=== PATIENT | female | born 1940 | race Caucasian/White ===

== ENCOUNTER 2016-10-19 14:13 | Emergency (ER) | payer MEDICARE, OTHER ==
[~2016-10-19 14:13] MED LIST: CEPH-263 PO; CEPH-264 PO; FLUC100T7 PO; LEVO500T38 PO; NYST15OI2 TP; OXYC-250 PO; OXYC15TA60 PO; [UNRECOGNIZED DRUG - REMARK]
[2016-10-19 15:12] LABS: BASO % 1 % (0-3); EOS # 0.4 x10^3/uL (0.0-0.7); EOS % 6 % (0-3); HEMOGLOBIN 11.8 g/dL (12.0-15.5); LYMPH # 0.7 x10^3/uL (1.0-4.8); LYMPH % 11 % (24-48); MEAN CORPUSCULAR HEMOGLOBIN 32 pg (25-35); MEAN CORPUSCULAR HGB CONC 33 g/dL (31-37); MEAN CORPUSCULAR VOLUME 97 fL (79-100); MONO # 0.7 x10^3/uL (0.0-1.1); MONO % 12 % (0-9); NEUT # 4.3 x10^3uL (1.8-7.7); NEUT % 71 % (31-73); PLATELET COUNT 116 x10^3/uL (140-400); RED BLOOD COUNT 3.69 x10^6/uL (3.50-5.40); RED CELL DISTRIBUTION WIDTH 15.6 % (11.5-14.5); WHITE BLOOD COUNT 6.1 x10^3/uL (4.0-11.0)
[2016-10-19 15:19] LABS: ALBUMIN 3.3 g/dL (3.4-5.0); ALBUMIN/GLOBULIN RATIO 0.7 (1.0-1.7); CALCIUM 7.8 mg/dL (8.5-10.1); CREATININE 7.3 mg/dL (0.6-1.0); GFR 5.4; POTASSIUM 4.7 mmol/L (3.5-5.1); TOTAL BILIRUBIN 0.5 mg/dL (0.2-1.0); TOTAL PROTEIN 7.9 g/dL (6.4-8.2)
--- NOTE | 2016-10-19 15:21 | ED.ADGEN ---
Past History Past Medical History: Arthritis, CAD, CHF, Diabetes, Hypertension, Renal Disease, Stroke, TIA, UTI Past Surgical History: Appendectomy, Cholecystectomy, Hysterectomy, Pacemaker, Other Smoking: Non-smoker Alcohol Use: None Drug Use: None Adult General Chief Complaint Chief Complaint "don't feel good, R ear pain, pain with urination HPI HPI Patient is a 76 year old female who presents with generalized not feeling well. She's had vomiting in recent days. Patient is a dialysis patient and she states she did not go two days ago and could not go today either.She reports "pain all over" but denies specific questions of pain reporting no chest pain, no abdominal pain, no increased shortness of breath. She continues to urinate and reports some pain with urination. Denies known fevers. She's most concerned about pain she has in her R ear at this time. Pt had h/o CAD, had a bare-metal stent placed by Dr. Villalta in 05/2016. When I asked the pt if she' s taking blood thinners, she answers yes but not sure what it is. When asked if she is sure she takes it everyday, she can't confirm that she takes it "every " day, because she has so many pills, she sometimes doesn't take them all. PCP: Evans Betancourt [employer] Specialist: Dr. Kelly Review of Systems Review of Systems Constitutional: Denies fever or chills [] Eyes: Denies change in visual acuity, redness, or eye pain [] HENT: Denies nasal congestion or sore throat [] Respiratory: Denies shortness of breath [] Cardiovascular: Denies chest pain GI: Denies abdominal pain, reports nausea, vomiting, denies bloody stools or diarrhea [] : per hpi Musculoskeletal: Reports multiple areas of pain Integument: Denies rash or skin lesions [] Neurologic: Denies headache, focal weakness or sensory changes [] Current Medications Current Medications Current Medications Medications (Trade) Dose Ordered Sig/Jami Start Time Stop Time Status Last Admin Dose Admin Amoxicillin (Amoxil) 500 mg 1X ONCE 10/19/16 17:15 10/19/16 17:16 DC 10/19/16 17:09 500 MG Aspirin (Laverne Aspirin) 325 mg 1X ONCE 10/19/16 16:40 10/19/16 16:41 DC 10/19/16 16:15 325 MG Allergies Allergies Allergies Coded Allergies Type Severity Reaction Last Updated Verified Sulfa (Sulfonamide Antibiotics) Allergy Intermediate Rash 01/27/16 Yes oxycodone Allergy Mild Itching 01/27/16 Yes Physical Exam Physical Exam Constitutional: Well developed, well nourished, no acute distress, non-toxic appearance, morbid obesity HENT: Normocephalic, atraumatic, bilateral external ears normal without tenderness, pt has dull retracted R TM without surruonding erythema, oropharynx moist, no oral exudates, nose normal. [] Eyes: PERRLA, EOMI, conjunctiva normal, no discharge. [] Neck: Normal range of motion, no tenderness, supple, no stridor. [] Cardiovascular:Heart rate regular with regular rhythm Lungs & Thorax: Bilateral breath sounds clear to auscultation, moderate air movement, no appreciable crackles Abdomen: Bowel sounds hypoactive, soft, no tenderness, no masses,nondistended Skin: Warm, dry, no erythema, erythema of lower extremities without increased warmth. Scab over distal anterior lateral R lower leg Extremities: No tenderness, no cyanosis, no clubbing, ROM intact, 1+ bilateral le edema. [] Neurologic: Alert and oriented X 3, normal motor function, normal sensory function, no focal deficits noted. [] Current Patient Data Vital Signs Vital Signs Date Time Temp Pulse Resp B/P Pulse Ox O2 Delivery O2 Flow Rate FiO2 10/19/16 18:23 97.7 62 17 106/39 98 Room Air Lab Results Laboratory Tests Test 10/19/16 14:45 10/19/16 16:29 10/19/16 17:40 White Blood Count 6.1x10^3/uL (4.0-11.0) Red Blood Count 3.69x10^6/uL (3.50-5.40) Hemoglobin 11.8g/dL (12.0-15.5) L Hematocrit 36.0% (36.0-47.0) Mean Corpuscular Volume 97fL (79-100) Mean Corpuscular Hemoglobin 32pg (25-35) Mean Corpuscular Hemoglobin Concent 33g/dL (31-37) Red Cell Distribution Width 15.6% (11.5-14.5) H Platelet Count 116x10^3/uL (140-400) L Neutrophils (%) (Auto) 71% (31-73) Lymphocytes (%) (Auto) 11% (24-48) L Monocytes (%) (Auto) 12% (0-9) H Eosinophils (%) (Auto) 6% (0-3) H Basophils (%) (Auto) 1% (0-3) Neutrophils # (Auto) 4.3x10^3uL (1.8-7.7) Lymphocytes # (Auto) 0.7x10^3/uL (1.0-4.8) L Monocytes # (Auto) 0.7x10^3/uL (0.0-1.1) Eosinophils # (Auto) 0.4x10^3/uL (0.0-0.7) Basophils # (Auto) 0.0x10^3/uL (0.0-0.2) Sodium Level 134mmol/L (136-145) L Potassium Level 4.7mmol/L (3.5-5.1) Chloride Level 93mmol/L (98-107) L Carbon Dioxide Level 25mmol/L (21-32) Anion Gap 16 (6-14) H Blood Urea Nitrogen 82mg/dL (7-20) H Creatinine 7.3mg/dL (0.6-1.0) H Estimated GFR (Cockcroft-Gault) 5.4 BUN/Creatinine Ratio 11 (6-20) Glucose Level 165mg/dL (70-99) H Calcium Level 7.8mg/dL (8.5-10.1) L Total Bilirubin 0.5mg/dL (0.2-1.0) Aspartate Amino Transferase (AST) 40U/L (15-37) H Alanine Aminotransferase (ALT) 41U/L (14-59) Alkaline Phosphatase 136U/L (46-116) H Troponin I Quantitative 0.027ng/mL (0-0.055) Total Protein 7.9g/dL (6.4-8.2) Albumin 3.3g/dL (3.4-5.0) L Albumin/Globulin Ratio 0.7 (1.0-1.7) L POC Troponin I 0.02ng/ml (<0.08) Urine Collection Type Unknown Urine Color Yellow Urine Clarity Cloudy Urine pH 7.0 Urine Specific [place] 1.015 Urine Protein >100 mg/dl (NEG-TRACE) Urine Glucose (UA) 100mg/dL (NEG) Urine Ketones (Stick) Negmg/dL (NEG) Urine Blood Mod (NEG) Urine Nitrite Neg (NEG) Urine Bilirubin Neg (NEG) Urine Urobilinogen Dipstick 0.2mg/dL (0.2 mg/dL) Urine Leukocyte Esterase Small (NEG) Urine RBC 3-5/HPF (0-2) Urine WBC 20-40/HPF (0-4) Urine Squamous Epithelial Cells Many/LPF Urine Bacteria Few/HPF (0-FEW) EKG EKG 93 bpm, V paced, R axis, QTC 520, no ST elevation, biphasic T wave III, V2, interpreted by me.[] Radiology/Procedures Radiology/Procedures [] Course & Med Decision Making Course & Med Decision Making Pertinent Labs and Imaging studies reviewed. (See chart for details) Pt has missed dialysis with vague symptoms of nonfocal pain with vomiting. Labs /urine ordered. EKG showed paced rhythm. Initial troponin return was 9. Aspirin given. contacted the lab and questioned the troponin as they normally call to alert to elevated troponins. They stated it wasn't elevated and we informed them that the reading in [facility] is 9.0. I contacted Dr. Chaidez, who accepted the transfer. I contacted Dr. Kelly and informed him of the elevated troponin, but that lab believes it was an error. He recommended transfer anyway , will arrange for inpatient dialysis. Lab confirmed they believe troponin in error and changed the reading in [facility]. We completed istat troponin in the ED. I contacted Mary Romeo of cardiology, who will consult on the patient. Istat troponin negative. I contacted Dr. Chaidez to explain the changes. No heparin given. UA pending at the time care was transferred. Pt was given a dose of amoxicillin for R otitis media. Final Impression Final Impression Vomiting Missed dialysis End stage renal disease R otitis media - possible Problems: Dragon Disclaimer Dragon Disclaimer This electronic medical record was generated, in whole or in part, using a voice recognition dictation system. LELO CAMPOS MD Oct 19, 2016 15:21
[2016-10-19] MEDS ORDERED: ASPIRIN 325 MG TABLET PO ONE (16:40)
[2016-10-19] MEDS ORDERED: AMOXICILLIN 500 MG CAPSULE PO ONE (17:15)
[2016-10-19 17:57] LABS: BILIRUBIN,URINE NEG (NEG); CLARITY,URINE CLOUDY; COLOR,URINE YELLOW; NITRITE,URINE NEG (NEG); UROBILINOGEN,URINE 0.2 mg/dL (0.2 mg/dL)
[2016-10-19 17:58] LABS: BACTERIA,URINE FEW /HPF (0-FEW); SQUAMOUS EPITHELIAL CELL,UR MANY /LPF; WBC,URINE 20-40 /HPF (0-4)
[2016-10-19 18:00] LABS: GLUCOSE,URINE 100 mg/dL (NEG)
[2016-10-19 18:23] VITALS: BP 106/39
--- NOTE | 2016-10-20 07:42 | EKG ---
[address] [address] Test Date: 2016-10-19 Test Time: 14:24:16 Pat Name: TINO PA Department: Room: Gender: F Slip Laster: DONALD : 1940 Requested By: LELO CAMPOS Order Number: [id number] Reading MD: Mark Aguilar Measurements Intervals [place] Rate: 93 P: SD: QRS: 148 QRSD: 168 T: -24 QT: 416 QTc: 520 Interpretive Statements SUSPECT V-PACED RHYTHM (POSSIBLE BIV) Electronically Signed On 11-06-2016 13:12:53 CDT by Mark Aguilar
== END 2016-10-19 18:36 | disposition short-term general hospital (02) ==
LOC: ER 14:13
DX: N18.6 End stage renal disease (principal); E11.22 Type 2 diabetes mellitus with diabetic chronic kidney disease; I25.10 Atherosclerotic heart disease of native coronary artery without angina pectoris; I13.2 Hypertensive heart and chronic kidney disease with heart failure and with stage 5 chronic kidney disease, or end stage renal disease; I50.9 Heart failure, unspecified; R11.2 Nausea with vomiting, unspecified; H66.91 Otitis media, unspecified, right ear; M19.90 Unspecified osteoarthritis, unspecified site; Z86.73 Personal history of transient ischemic attack (TIA), and cerebral infarction without residual deficits; Z99.2 Dependence on renal dialysis; Z95.0 Presence of cardiac pacemaker; Z88.2 Allergy status to sulfonamides; Z88.6 Allergy status to analgesic agent
CPT/HCPCS: 36415; 80053; 81001; 84484; 85027; 87086; 93005; 99285-25

== ENCOUNTER 2016-10-25 18:33 | Emergency (ER) | payer MEDICARE, OTHER ==
[2016-10-25 18:33] VITALS: BP 164/106
--- NOTE | 2016-10-25 19:00 | PHYS DOC ---
General Stated Complaint: KIDNEY PAIN Time Seen by MD: 18:42 Source: patient Problems: History of Present Illness Initial Comments Patient here for vaginal pain. Patient states this been present for 2 days. Feels like a sharp and constant pain in her vaginal area. She says she's had this several years ago but doesn't remember what caused then. She's had no fever or chills with this. There is no runny nose or sore throat. Is no chest pain or shortness of breath. There is no URI symptoms or cough. She has no nausea vomiting today. There's no abdominal pain, it's really focused on the vaginal area. There is no vaginal discharge or bleeding. She says she still does make urine is had some dysuria. There is no diarrhea or constipation her last bowel movement was this morning. She has chronic swelling of the lower extremities but this is not acutely changed or different. She denies any other acute focal extremity or neurologic complaints. Patient is done nothing for this home and notes no increased or decreasing factors. She says when she mentioned to a dialysis nurse today, they told her to go see her doctor. Patient 's past history is remarkable for hypertension, CHF, and end-stage renal disease. She's Sunday dialysis person. She went to dialysis this morning. She is a nonsmoker and nonuser of ethanol. Allergies: Coded Allergies: Sulfa (Sulfonamide Antibiotics) (Verified Allergy, Intermediate, Rash, ) oxycodone (Verified Allergy, Mild, Itching, 01/27/16) Past Medical History Medical History: congestive heart failure, hypertension, renal disease Social History Smoker: non-smoker Alcohol: none Review of Systems All Other Systems: Reviewed and Negative Physical Exam General Appearance: WD/WN, no apparent distress Neck: full range of motion, supple, normal inspection Respiratory: lungs clear, normal breath sounds, no respiratory distress Cardiovascular: regular rate, rhythm Gastrointestinal: non tender, soft Back: no CVA tenderness, no vertebral tenderness, other Neurologic/Psychiatric: alert, normal mood/affect, oriented x 3 Skin: normal color Lymphatic: no adenopathy Comments Generally this is an elderly, chronically ill-appearing obese white female in no acute distress. Vitals are as noted. Pertinent findings on physical exam shows the neck to be supple without adenopathy or JVD. Chest is clear and cardiovascular exam is regular rate and rhythm without murmur. The abdomen is soft and nontender without masses or megaly. There is no perineal findings. She has a small pannus. Back shows some mild mid to low bilateral lumbar paraspinal tenderness. No distinct CVA tenderness and no bony tenderness. Extremities show 2+ chronic woody edema of the bilateral lower extremities which patient states is chronic small. There is a healing ulceration over the anterior aspect of the right lower leg. External genitalia shows irritation the vaginal lips and the labia with some sense of a yeast infection. Patient's exquisitely tender over the labial areas. There is no signs of abscess. Neurologic shows her to be awake alert oriented and cooperative. Remainder of physical exam is clinically unremarkable. Orders, Labs, Meds Old charts note the patient was seen here 6 days ago for end-stage renal disease. She apparently missed several days of dialysis and had a questionable elevated troponin. She was transferred to [place] at that time for admission and dialysis. She's also been seen twice for this year for urinary tract infection. In the past for UTI as well as pressure sores, laceration, nausea, and left without being seen. Labs today are clinically unremarkable. BUN and creatinine are consistent with the patient's known renal failure. Potassium is stable. 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 There is no acute changes per radiology. 2235 Patient resting in the ER. She's recently received fentanyl and does appear to be much more comfortable at this time. Discussed with the patient and her now here in the uncertain cause the patient's vaginal pain. There is certainly no structural problems noted, and on exam, she really is quite quite a bit of irritation over the labia and a slight amount of discharge and to may be consistent with a Terrie infection. She is not known to be on antibiotics, but certainly with her renal failure may be considered to be relatively immunosuppressed and I think a candidal vaginitis is likely. I discussed with the patient and her this time, I think we can try to treat this was appropriate cream, Clotrimazole, for home. Patient is very comfortable with this plan and very eager for discharge. I did discuss with her the importance of following up going with dialysis on Sunday as planned, but also with her primary care physician should her vaginal burning and itching not resolved. She voices understanding need for follow-up, and she may also certainly return to the ER sooner as needed if worsen anyway. I did apologize for delays and care related to patient load, and they voice understanding. I was hoping also to obtain a urine sample, she does say that she make some urine , but was unable to provide one here in the ED and I don't think will gain by continuing to wait at this time. Patient and her appear comfortable with the discharge plan and understand the need to follow-up or to return the ER as needed if worsening anyway. Patient herself looks well, in no acute discomfort distress, okay for discharge home at this time. EDUARDO VIENS MD Oct 25, 2016 19:00
[2016-10-25 20:24] LABS: BASO # 0.1 x10^3/uL (0.0-0.2); BASO % 1 % (0-3); EOS # 0.4 x10^3/uL (0.0-0.7); EOS % 7 % (0-3); HEMATOCRIT 36.5 % (36.0-47.0); HEMOGLOBIN 12.3 g/dL (12.0-15.5); LYMPH # 1.1 x10^3/uL (1.0-4.8); LYMPH % 18 % (24-48); MEAN CORPUSCULAR HEMOGLOBIN 32 pg (25-35); MEAN CORPUSCULAR HGB CONC 34 g/dL (31-37); MEAN CORPUSCULAR VOLUME 96 fL (79-100); MONO # 0.9 x10^3/uL (0.0-1.1); MONO % 15 % (0-9); NEUT # 3.5 x10^3uL (1.8-7.7); NEUT % 60 % (31-73); PLATELET COUNT 157 x10^3/uL (140-400); RED BLOOD COUNT 3.83 x10^6/uL (3.50-5.40); RED CELL DISTRIBUTION WIDTH 15.4 % (11.5-14.5); WHITE BLOOD COUNT 5.9 x10^3/uL (4.0-11.0)
[2016-10-25] MEDS ORDERED: FENTANYL PF 100 MCG/2 ML VIAL. IV ONE (20:45)
[2016-10-25 21:31] LABS: ALBUMIN 3.2 g/dL (3.4-5.0); ALBUMIN/GLOBULIN RATIO 0.7 (1.0-1.7); CALCIUM 8.1 mg/dL (8.5-10.1); CREATININE 3.3 mg/dL (0.6-1.0); GFR 13.6; POTASSIUM 3.8 mmol/L (3.5-5.1); TOTAL BILIRUBIN 0.5 mg/dL (0.2-1.0); TOTAL PROTEIN 8.1 g/dL (6.4-8.2)
--- NOTE | 2016-10-25 21:57 | RAD ---
PROCEDURE Pelvic ultrasound. HISTORY Vaginal pain x2 days. Distant history of hysterectomy TECHNIQUE Real-time ultrasound imaging of the pelvis using transabdominal and transvaginal window is performed. COMPARISON None. FINDINGS Uterus and ovaries are surgically absent. No pelvic free fluid is seen. No evidence of adnexal mass. No obvious abnormality of the vaginal cuff. IMPRESSION Negative pelvic ultrasound. Electronically signed by: Micky Plummer MD (Oct 25, 2016 21:55:46)
[2016-10-25] MEDS: CLOTRIMAZOLE 1% VAGINAL CREAM 45GM TUBE. VG SCH (23:30)
== END 2016-10-25 23:30 | disposition home or self-care (01) ==
LOC: ER 18:34
DX: R10.2 Pelvic and perineal pain (principal); R30.0 Dysuria; R22.43 Localized swelling, mass and lump, lower limb, bilateral; I13.2 Hypertensive heart and chronic kidney disease with heart failure and with stage 5 chronic kidney disease, or end stage renal disease; N18.6 End stage renal disease; I50.9 Heart failure, unspecified; Z99.2 Dependence on renal dialysis; Z88.2 Allergy status to sulfonamides; Z88.6 Allergy status to analgesic agent
CPT/HCPCS: 36415; 76830; 76856; 80053; 85027; 96374; 99285; J3010

== ENCOUNTER 2016-11-27 17:39 | Emergency (ER) | payer MEDICARE, OTHER ==
[~2016-11-27 17:39] MED LIST changes: -LEVO500T38 PO; +LEVO500T59 PO; -OXYC-250 PO; +OXYC-328 PO
[2016-11-27 19:11] LABS: BILIRUBIN,URINE NEG (NEG); CLARITY,URINE CLOUDY; COLOR,URINE YELLOW; GLUCOSE,URINE NEG (NEG); NITRITE,URINE NEG (NEG); UROBILINOGEN,URINE 0.2 mg/dL (0.2 mg/dL)
[2016-11-27 19:12] LABS: BACTERIA,URINE MANY /HPF (0-FEW); RBC,URINE RARE /HPF (0-2); WBC,URINE TNTC /HPF (0-4)
--- NOTE | 2016-11-27 19:29 | PHYS DOC ---
Past History Past Medical History: Arthritis, CAD, CHF, Diabetes, Hypertension, Renal Disease, Stroke, TIA, UTI Past Medical History ESRD on dialysis Past Surgical History: Appendectomy, Cholecystectomy, Hysterectomy, Pacemaker, Other Smoking: Non-smoker Alcohol Use: None Drug Use: None Adult General Chief Complaint Chief Complaint: PAIN ON URINATION [facility] Patient is a 76 year old female who presents with burning with urination. She is a dialysis patient who just received her dialysis on Sunday. She does receive a normally on Sunday and Sunday. She noted that she started having some burning with urination for the last 24 hours. She does still make a small amount of urine. No nausea vomiting. No fever or chills. No shortness of breath or chest pain. Review of Systems Review of Systems Constitutional: Denies fever or chills Eyes: Denies change in visual acuity, redness, or eye pain HENT: Denies nasal congestion or sore throat Respiratory: Denies cough or shortness of breath Cardiovascular: No additional information not addressed in [facility] . No chest pain GI: Denies abdominal pain, nausea, vomiting, bloody stools or diarrhea : See history of present illness, no hematuria Musculoskeletal: Denies back pain or joint pain Integument: Denies rash or skin lesions Neurologic: Denies headache, focal weakness or sensory changes Endocrine: Denies polyuria or polydipsia Allergies Allergies Allergies Coded Allergies Type Severity Reaction Last Updated Verified Sulfa (Sulfonamide Antibiotics) Allergy Intermediate Rash 01/27/16 Yes oxycodone Allergy Mild Itching 01/27/16 Yes Physical Exam Physical Exam Constitutional: Well developed, well nourished, no acute distress, non-toxic appearance. HENT: Normocephalic, atraumatic, bilateral external ears normal, oropharynx moist, no oral exudates, nose normal. Eyes: PERRLA, EOMI, conjunctiva normal, no discharge. Neck: Normal range of motion, no tenderness, supple, no stridor. Cardiovascular:Heart rate regular rhythm, systolic murmur Lungs & Thorax: Bilateral breath sounds clear to auscultation Abdomen: Bowel sounds normal, soft, no tenderness, no masses, no pulsatile masses. Skin: Warm, dry, no erythema, no rash. Back: No tenderness, no CVA tenderness. Extremities: No tenderness, no cyanosis, no clubbing, ROM intact, no edema. Right upper extremity with good thrill on palpation at AB graft. Neurologic: Alert and oriented X 3, normal motor function, normal sensory function, no focal deficits noted. Psychologic: Affect normal, judgement normal, mood normal. Current Patient Data Vital Signs Vital Signs Date Time Temp Pulse Resp B/P (MAP) Pulse Ox O2 Delivery O2 Flow Rate FiO2 11/27/16 18:00 97.4 86 22 95 Room Air BP 168/62, P 86, RR 22, sat 95%, T 97.4 Lab Results Laboratory Tests Test 11/27/16 18:10 Urine Collection Type U cath Urine Color Yellow Urine Clarity Cloudy Urine pH 5.5 Urine Specific [place] 1.020 Urine Protein >100 mg/dl (NEG-TRACE) Urine Glucose (UA) Neg mg/dL (NEG) Urine Ketones (Stick) Neg mg/dL (NEG) Urine Blood Large (NEG) Urine Nitrite Neg (NEG) Urine Bilirubin Neg (NEG) Urine Urobilinogen Dipstick 0.2 mg/dL (0.2 mg/dL) Urine Leukocyte Esterase Mod (NEG) Urine RBC Rare /HPF (0-2) Urine WBC Tntc /HPF (0-4) Urine Squamous Epithelial Cells None /LPF Urine Bacteria Many /HPF (0-FEW) Course & Med Decision Making Course & Med Decision Making Pertinent Labs and Imaging studies reviewed. (See chart for details) Spoke with Dr Kelly (nephrology)- at 2000 PM. Dose with Levaquin 500 mg daily for 3 days. He will follow up on urine culture. No evidence of sepsis at this time. No vomiting. Patient was given first dose here in the department. Dragon Disclaimer Dragon Disclaimer This chart was dictated in whole or in part using Voice Recognition software in a busy, high-work load, and often noisy Emergency Department environment. It may contain unintended and wholly unrecognized errors or omissions. Departure Departure: Referrals: PETRA HINES MD (PCP) Scripts Levofloxacin (LEVAQUIN) 500 Mg Tablet 500 MG PO DAILY for 2 Days, #2 TAB Prov: SWATI GOEL MD 11/27/16 SWATI GOEL MD November 27, 2016 19:29
[2016-11-27] MEDS ORDERED: LEVO500T59 PO (20:06)
[2016-11-27 20:18] VITALS: BP 177/65
[2016-11-27] MEDS ORDERED: levoFLOXacin 500 MG TABLET PO ONE (20:30)
== END 2016-11-27 20:18 | disposition home or self-care (01) ==
LOC: ER 17:39
DX: R30.0 Dysuria (principal); I25.10 Atherosclerotic heart disease of native coronary artery without angina pectoris; I13.0 Hypertensive heart and chronic kidney disease with heart failure and stage 1 through stage 4 chronic kidney disease, or unspecified chronic kidney disease; N18.9 Chronic kidney disease, unspecified; I50.9 Heart failure, unspecified; E11.22 Type 2 diabetes mellitus with diabetic chronic kidney disease; M19.90 Unspecified osteoarthritis, unspecified site; Z86.73 Personal history of transient ischemic attack (TIA), and cerebral infarction without residual deficits; Z87.440 Personal history of urinary (tract) infections; Z99.2 Dependence on renal dialysis; Z95.0 Presence of cardiac pacemaker; Z88.2 Allergy status to sulfonamides; Z88.6 Allergy status to analgesic agent
CPT/HCPCS: 81001; 87086; 87186; 99283; 99284

== ENCOUNTER 2016-11-27 22:53 | Emergency (ER) | payer MEDICARE, OTHER ==
[~2016-11-27] VITALS: Ht 167.6 cm; Wt 97.4 kg
--- NOTE | 2016-11-27 23:18 | PHYS DOC ---
Past History Past Medical History: Arthritis, CAD, CHF, Diabetes, Hypertension, Renal Disease, Stroke, TIA, UTI Additional Past Medical Histor: ESRD on dialysis Past Surgical History: Appendectomy, Cholecystectomy, Hysterectomy, Pacemaker, Other Smoking: Non-smoker Alcohol Use: None Drug Use: None Adult General Chief Complaint Chief Complaint: PAIN ON URINATION HPI HPI Review of Systems Review of Systems Constitutional: Denies fever or chills Eyes: Denies change in visual acuity, redness, or eye pain HENT: Denies nasal congestion or sore throat Respiratory: Denies cough or shortness of breath Cardiovascular: No additional information not addressed in HPI . No chest pain GI: Denies abdominal pain, nausea, vomiting, bloody stools or diarrhea : See history of present illness. No hematuria Musculoskeletal: Denies back pain or joint pain Integument: Denies rash or skin lesions Neurologic: Denies headache, focal weakness or sensory changes Endocrine: Denies polyuria or polydipsia Allergies Allergies Allergies Coded Allergies Type Severity Reaction Last Updated Verified Sulfa (Sulfonamide Antibiotics) Allergy Intermediate Rash 01/27/16 Yes oxycodone Allergy Mild Itching 01/27/16 Yes Physical Exam Physical Exam Constitutional: Well developed, well nourished, no acute distress, non-toxic appearance. HENT: Normocephalic, atraumatic, bilateral external ears normal, oropharynx moist, no oral exudates, nose normal. Eyes: PERRLA, EOMI, conjunctiva normal, no discharge. Neck: Normal range of motion, no tenderness, supple, no stridor. Cardiovascular:Heart rate regular rhythm, systolic murmur Lungs & Thorax: Bilateral breath sounds clear to auscultation Abdomen: Bowel sounds normal, soft, no tenderness, no masses, no pulsatile masses. Skin: Warm, dry, no erythema, no rash. Back: No tenderness, no CVA tenderness. Extremities: No tenderness, no cyanosis, no clubbing, ROM intact, no edema. Right upper extremity with her shunt noted. Good thrill palpable. Neurologic: Alert and oriented X 3, normal motor function, normal sensory function, no focal deficits noted. Psychologic: Affect normal, judgement normal, mood normal. Current Patient Data Vital Signs T 98.1; P 79, Sat 96% RA, BP 126/61, Wt 97.4 kg Lab Results Laboratory Tests Test 11/28/16 00:46 Glucose (Fingerstick) 238 mg/dL Current Medications Medications (Trade) Dose Ordered Sig/Jami Route PRN Reason Start Time Stop Time Status Last Admin Dose Admin Acetaminophen/ Hydrocodone Bitart (Lortab 5/325) 2 tab 1X ONCE PO 11/28/16 01:00 11/28/16 01:01 DC 11/28/16 00:50 Course & Med Decision Making Course & Med Decision Making This is the patient's second visit. I did see her earlier tonight. She was given her Levaquin then. She states she just needs something for pain. She was then dosed with Vicodin which she states she can take without difficulty. Her follow up as instructed. Dragon Disclaimer Dragon Disclaimer This chart was dictated in whole or in part using Voice Recognition software in a busy, high-work load, and often noisy Emergency Department environment. It may contain unintended and wholly unrecognized errors or omissions. Departure Departure: Referrals: PETRA HINES MD (PCP) SWATI GOEL MD November 27, 2016 23:18
[2016-11-28] MEDS ORDERED: HYDROcodone/APAP 5/325MG 1 TAB TABLET PO ONE (01:00)
[2016-11-28 02:35] VITALS: BP 120/57
== END 2016-11-28 00:50 | disposition home or self-care (01) ==
LOC: ER 22:55
DX: R30.9 Painful micturition, unspecified (principal); I25.10 Atherosclerotic heart disease of native coronary artery without angina pectoris; I13.0 Hypertensive heart and chronic kidney disease with heart failure and stage 1 through stage 4 chronic kidney disease, or unspecified chronic kidney disease; N18.9 Chronic kidney disease, unspecified; I50.9 Heart failure, unspecified; M19.90 Unspecified osteoarthritis, unspecified site; E11.29 Type 2 diabetes mellitus with other diabetic kidney complication; Z86.73 Personal history of transient ischemic attack (TIA), and cerebral infarction without residual deficits; Z87.440 Personal history of urinary (tract) infections; N28.9 Disorder of kidney and ureter, unspecified; Z95.0 Presence of cardiac pacemaker; Z99.2 Dependence on renal dialysis; Z88.2 Allergy status to sulfonamides; Z88.6 Allergy status to analgesic agent
CPT/HCPCS: 82947; 99284

== ENCOUNTER 2016-12-05 15:18 | Emergency (ER) | payer MEDICARE, OTHER ==
--- NOTE | 2016-12-05 15:51 | PHYS DOC ---
Past History Past Medical History: Arthritis, CAD, CHF, Diabetes, Hypertension, Renal Disease, Stroke, TIA, UTI Additional Past Medical Histor: ESRD on dialysis Past Surgical History: Appendectomy, Cholecystectomy, Hysterectomy, Pacemaker, Other Smoking: Non-smoker Alcohol Use: None Drug Use: None Adult General Chief Complaint Chief Complaint: FOOT INJURY PAIN HPI HPI This 76-year-old lady presents with history of got her foot caught on a door frame and twisted her right forefoot outward. She presents now with a great deal of pain in her distal right foot just proximal to the toes. She has been unable to bear weight Review of Systems Review of Systems Constitutional: Denies fever or chills [] Eyes: Denies change in visual acuity, redness, or eye pain [] HENT: Denies nasal congestion or sore throat [] Respiratory: Denies cough or shortness of breath [] Cardiovascular: No additional information not addressed in HPI [] GI: Denies abdominal pain, nausea, vomiting, bloody stools or diarrhea [] : Denies dysuria or hematuria [] Musculoskeletal: Denies back pain but she does have severe right foot pain Integument: Denies rash or skin lesions [] Neurologic: Denies headache, focal weakness or sensory changes [] Endocrine: Denies polyuria or polydipsia [] Allergies Allergies Allergies Coded Allergies Type Severity Reaction Last Updated Verified Sulfa (Sulfonamide Antibiotics) Allergy Intermediate Rash 01/27/16 Yes oxycodone Allergy Mild Itching 01/27/16 Yes Physical Exam Physical Exam Constitutional: Well developed, well nourished, no acute distress, non-toxic appearance. [] HENT: Normocephalic, atraumatic, bilateral external ears normal, oropharynx moist, no oral exudates, nose normal. [] Eyes: PERRLA, EOMI, conjunctiva normal, no discharge. [] Neck: Normal range of motion, no tenderness, supple, no stridor. [] Cardiovascular:Heart rate regular rhythm, no murmur [] Lungs & Thorax: Bilateral breath sounds clear to auscultation [] Abdomen: Bowel sounds normal, soft, no tenderness, no masses, no pulsatile masses. [] Skin: Warm, dry, no erythema, no rash. [] Back: No tenderness, no CVA tenderness. [] Extremities: Patient has a great deal of tenderness and some swelling of the distal right foot she has brawny edema of the leg anyway. Her point of tenderness is mainly over the distal metacarpal tarsals of the first through fifth metatarsals on the right Neurologic: Alert and oriented X 3, normal motor function, normal sensory function, no focal deficits noted. [] Psychologic: Affect normal, judgement normal, mood normal. [] EKG EKG [] Radiology/Procedures Radiology/Procedures Fractured right fourth metatarsal [] Course & Med Decision Making Course & Med Decision Making Pertinent Labs and Imaging studies reviewed. (See chart for details) This patient was placed in a short leg splint and given pain medications and orthopedic referral [] Dragon Disclaimer Dragon Disclaimer This chart was dictated in whole or in part using Voice Recognition software in a busy, high-work load, and often noisy Emergency Department environment. It may contain unintended and wholly unrecognized errors or omissions. Departure Departure: Referrals: PETRA HINES MD (PCP) CHATO DUNLAP MD December 05, 2016 15:51
--- NOTE | 2016-12-05 15:58 | RAD ---
Indication foot injury. Injury to the toes. AP oblique and lateral views of the right foot were obtained. There is bony demineralization. There is soft tissue swelling. There is moderately extensive vascular calcification There is a nondisplaced, traumatic, oblique fracture involving the distal shaft of the fourth metatarsal. IMPRESSION: Nondisplaced fracture fourth metatarsal. Additional chronic changes are noted as outlined above
[2016-12-05] MEDS ORDERED: HYDR-2758 PO (16:38)
[2016-12-05 16:59] VITALS: BP 144/69
== END 2016-12-05 17:02 | disposition home or self-care (01) ==
LOC: ER 15:18
DX: S92.344A Nondisplaced fracture of fourth metatarsal bone, right foot, initial encounter for closed fracture (principal); M19.90 Unspecified osteoarthritis, unspecified site; I25.10 Atherosclerotic heart disease of native coronary artery without angina pectoris; E11.22 Type 2 diabetes mellitus with diabetic chronic kidney disease; I13.2 Hypertensive heart and chronic kidney disease with heart failure and with stage 5 chronic kidney disease, or end stage renal disease; N18.6 End stage renal disease; I50.9 Heart failure, unspecified; Z99.2 Dependence on renal dialysis; Z86.73 Personal history of transient ischemic attack (TIA), and cerebral infarction without residual deficits; Z87.440 Personal history of urinary (tract) infections; Z96.89 Presence of other specified functional implants; Z88.2 Allergy status to sulfonamides; Z88.5 Allergy status to narcotic agent; W23.0XXA Caught, crushed, jammed, or pinched between moving objects, initial encounter; Y93.89 Activity, other specified; Y92.89 Other specified places as the place of occurrence of the external cause; Y99.8 Other external cause status
CPT/HCPCS: 29515; 73630; 99284

== ENCOUNTER 2017-01-15 15:58 | Emergency (ER) | payer MEDICARE, OTHER ==
[~2017-01-15 15:58] MED LIST changes: +HYDR-2758 PO
[2017-01-15 16:56] LABS: BILIRUBIN,URINE NEG (NEG); CLARITY,URINE TURBID; COLOR,URINE AMBER; GLUCOSE,URINE NEG (NEG)
[2017-01-15 16:57] LABS: BACTERIA,URINE MANY /HPF (0-FEW); NITRITE,URINE NEG (NEG); SQUAMOUS EPITHELIAL CELL,UR OCC /LPF; UROBILINOGEN,URINE 0.2 mg/dL (0.2 mg/dL); WBC,URINE TNTC /HPF (0-4)
[2017-01-15 16:59] LABS: BASO # 0.1 x10^3/uL (0.0-0.2); BASO % 1 % (0-3); EOS # 0.2 x10^3/uL (0.0-0.7); EOS % 4 % (0-3); HEMATOCRIT 33.8 % (36.0-47.0); HEMOGLOBIN 11.3 g/dL (12.0-15.5); LYMPH # 0.7 x10^3/uL (1.0-4.8); LYMPH % 12 % (24-48); MEAN CORPUSCULAR HEMOGLOBIN 33 pg (25-35); MEAN CORPUSCULAR HGB CONC 34 g/dL (31-37); MEAN CORPUSCULAR VOLUME 98 fL (79-100); MONO % 18 % (0-9); NEUT # 3.6 x10^3uL (1.8-7.7); NEUT % 66 % (31-73); PLATELET COUNT 144 x10^3/uL (140-400); RED BLOOD COUNT 3.44 x10^6/uL (3.50-5.40); RED CELL DISTRIBUTION WIDTH 15.6 % (11.5-14.5); WHITE BLOOD COUNT 5.5 x10^3/uL (4.0-11.0)
[2017-01-15 17:11] LABS: ALBUMIN 2.9 g/dL (3.4-5.0); ALBUMIN/GLOBULIN RATIO 0.6 (1.0-1.7); CALCIUM 7.3 mg/dL (8.5-10.1); CREATININE 3.5 mg/dL (0.6-1.0); GFR 12.7; TOTAL BILIRUBIN 0.4 mg/dL (0.2-1.0); TOTAL PROTEIN 7.4 g/dL (6.4-8.2)
[2017-01-15] MEDS ORDERED: cefTRIAXone SODIUM 1 GM VIAL IV ONE (18:07)
[2017-01-15] MEDS ORDERED: IV NORMAL SALINE 50ML 50 ML ONE (18:07)
--- NOTE | 2017-01-15 18:14 | PHYS DOC ---
Past History Past Medical History: Arthritis, CAD, CHF, Diabetes, Hypertension, Renal Failure, Stroke, TIA, UTI Additional Past Medical Histor: ESRD on dialysis Past Surgical History: Appendectomy, Cholecystectomy, Hysterectomy, Pacemaker, Other Smoking: Non-smoker Alcohol Use: None Drug Use: None Adult General Chief Complaint Chief Complaint: PAIN ON URINATION HPI HPI Patient is a 76 year old female who presents with suprapubic pain. Patient reports three-day history of suprapubic discomfort associated with dysuria and foul-smelling urine. She reports lower back pain. She denies fever, vomiting, flank pain. History of recurrent UTI. Recently hospitalized at [facility] for chest pain. States at that time she was diagnosed with urinary tract infection, recently completed an outpatient course of antibiotics but not sure of the name. She has ESRD & completed dialysis on scheduled today. Review of Systems Review of Systems Constitutional: Denies fever or chills Eyes: Denies change in visual acuity HENT: Denies nasal congestion or sore throat Respiratory: Denies cough or shortness of breath Cardiovascular: Denies chest pain or edema GI: Reports abdominal pain, denies nausea, vomiting, bloody stools or diarrhea : Ports dysuria, denies hematuria Musculoskeletal: Her port flank pain, denies joint pain Integument: Denies rash or skin lesions Neurologic: Denies headache, focal weakness or sensory changes Current Medications Current Medications Current Medications Medications (Trade) Dose Ordered Sig/Jami Start Time Stop Time Status Last Admin Dose Admin Ceftriaxone Sodium 1 gm/ Sodium Chloride 50 ml @ 100 mls/hr 1X ONCE 01/15/17 17:45 01/15/17 18:14 Ceftriaxone Sodium (Rocephin) 1 gm STK-MED ONCE 01/15/17 18:07 01/15/17 18:08 DC Sodium Chloride 50 ml @ As Directed STK-MED ONCE 01/15/17 18:07 01/15/17 18:08 DC Allergies Allergies Allergies Coded Allergies Type Severity Reaction Last Updated Verified Sulfa (Sulfonamide Antibiotics) Allergy Intermediate Rash 01/27/16 Yes oxycodone Allergy Mild Itching 01/27/16 Yes Physical Exam Physical Exam Constitutional: Obese, no acute distress, non-toxic appearance. HENT: Normocephalic, atraumatic, bilateral external ears normal, oropharynx moist, nose normal. Eyes: conjunctiva normal, no discharge. Neck: supple, no stridor. Cardiovascular: RRR, no murmurs, no edema. Lungs & Thorax: LCTAB, no wheezing, no respiratory distress. Abdomen: soft, no focal abdominal tenderness with palpation, no rebound or guarding, no masses or pulsatile masses, nondistended. Skin: Warm, dry, no erythema, no rash. Back: Generalized lower back tenderness, no CVA tenderness. Extremities: No tenderness, no edema. Neurologic: Alert and oriented X 3, no focal deficits noted. Psychologic: Affect normal, judgement normal, mood normal. Current Patient Data Vital Signs Vital Signs Date Time Temp Pulse Resp B/P (MAP) Pulse Ox O2 Delivery O2 Flow Rate FiO2 01/15/17 15:58 98.8 87 18 94 Room Air Lab Results Laboratory Tests Test 01/15/17 16:25 01/15/17 16:40 Urine Collection Type U cath Urine Color Lisa Urine Clarity Turbid Urine pH 7.0 Urine Specific [place] 1.020 Urine Protein >100 mg/dl (NEG-TRACE) Urine Glucose (UA) Neg mg/dL (NEG) Urine Ketones (Stick) Neg mg/dL (NEG) Urine Blood Large (NEG) Urine Nitrite Neg (NEG) Urine Bilirubin Neg (NEG) Urine Urobilinogen Dipstick 0.2 mg/dL (0.2 mg/dL) Urine Leukocyte Esterase Large (NEG) Urine RBC 6-10 /HPF (0-2) Urine WBC Tntc /HPF (0-4) Urine Squamous Epithelial Cells Occ /LPF Urine Transitional Epithelial Cells Occ /LPF Urine Bacteria Many /HPF (0-FEW) Urine Mucus Slight /LPF White Blood Count 5.5 x10^3/uL (4.0-11.0) Red Blood Count 3.44 x10^6/uL (3.50-5.40) L Hemoglobin 11.3 g/dL (12.0-15.5) L Hematocrit 33.8 % (36.0-47.0) L Mean Corpuscular Volume 98 fL (79-100) Mean Corpuscular Hemoglobin 33 pg (25-35) Mean Corpuscular Hemoglobin Concent 34 g/dL (31-37) Red Cell Distribution Width 15.6 % (11.5-14.5) H Platelet Count 144 x10^3/uL (140-400) Neutrophils (%) (Auto) 66 % (31-73) Lymphocytes (%) (Auto) 12 % (24-48) L Monocytes (%) (Auto) 18 % (0-9) H Eosinophils (%) (Auto) 4 % (0-3) H Basophils (%) (Auto) 1 % (0-3) Neutrophils # (Auto) 3.6 x10^3uL (1.8-7.7) Lymphocytes # (Auto) 0.7 x10^3/uL (1.0-4.8) L Monocytes # (Auto) 1.0 x10^3/uL (0.0-1.1) Eosinophils # (Auto) 0.2 x10^3/uL (0.0-0.7) Basophils # (Auto) 0.1 x10^3/uL (0.0-0.2) Sodium Level 137 mmol/L (136-145) Potassium Level 3.0 mmol/L (3.5-5.1) L Chloride Level 94 mmol/L (98-107) L Carbon Dioxide Level 32 mmol/L (21-32) Anion Gap 11 (6-14) Blood Urea Nitrogen 33 mg/dL (7-20) H Creatinine 3.5 mg/dL (0.6-1.0) H Estimated GFR (Cockcroft-Gault) 12.7 BUN/Creatinine Ratio 9 (6-20) Glucose Level 206 mg/dL (70-99) H Calcium Level 7.3 mg/dL (8.5-10.1) L Total Bilirubin 0.4 mg/dL (0.2-1.0) Aspartate Amino Transferase (AST) 30 U/L (15-37) Alanine Aminotransferase (ALT) 31 U/L (14-59) Alkaline Phosphatase 125 U/L (46-116) H Total Protein 7.4 g/dL (6.4-8.2) Albumin 2.9 g/dL (3.4-5.0) L Albumin/Globulin Ratio 0.6 (1.0-1.7) L EKG EKG [] Radiology/Procedures Radiology/Procedures [] Course & Med Decision Making Course & Med Decision Making Pertinent Labs and Imaging studies reviewed. (See chart for details) Patient presents with symptoms of urinary tract infection which is confirmed on UA. Not septic however she has pyuria and has reportedly completed outpatient antibiotics and failed treatment. Gave rocephin & obtained urine culture. I recommended admission to the hospital. The patient agreed with plan of care. Discussed with Dr Puga here at [facility], recommends transfer to [facility] as she will require dialysis likely during her stay. Discussed with Dr. Phillip who agrees to accept for transfer. The patient is being transferred in stable condition via EMS.. [] Dragon Disclaimer Dragon Disclaimer This chart was dictated in whole or in part using Voice Recognition software in a busy, high-work load, and often noisy Emergency Department environment. It may contain unintended and wholly unrecognized errors or omissions. Departure Departure: Impression: Primary Impression: Complicated urinary tract infection Additional Impression: End stage renal disease Disposition: 05 XFER OTHER Condition: STABLE Referrals: PETRA HINES MD (PCP) Problem Qualifiers DIMA BELL MD Jan 15, 2017 18:14
[2017-01-15 18:40] VITALS: BP 133/61
[2017-01-15] MEDS ORDERED: fentaNYL PF 100 MCG/2 ML VIAL ONE (20:43)
[2017-01-15] MEDS ORDERED: fentaNYL PF 100 MCG/2 ML VIAL IV ONE (21:00)
[2017-01-15] MEDS ORDERED: fentaNYL PF 250 MCG/5 ML VIAL IV ONE (21:00)
--- NOTE | 2017-01-16 06:26 | EKG ---
[address] [address] Test Date: 2017-01-15 Test Time: 21:04:50 Pat Name: TINO PA Department: Room: Gender: F Agricultural Researcher: : 1940 Requested By: EMBER HUGGINS Order Number: [id number] Reading MD: Measurements Intervals [place] Rate: 85 P: 40 UT: 134 QRS: 143 QRSD: 186 T: -51 QT: 414 QTc: 493 Interpretive Statements SINUS RHYTHM COMPLEX(ES) WITH ABERRANT INTRAVENTRICULAR CONDUCTION VENTRICULAR PREMATURE COMPLEX(ES) WPW PATTERN, TYPE A ABNORMAL RIGHT AXIS DEVIATION RI6.01 Unconfirmed report No previous ECG available for comparison
== END 2017-01-15 21:12 | disposition short-term general hospital (02) ==
LOC: ER 15:58
DX: N39.0 Urinary tract infection, site not specified (principal); I13.2 Hypertensive heart and chronic kidney disease with heart failure and with stage 5 chronic kidney disease, or end stage renal disease; E11.22 Type 2 diabetes mellitus with diabetic chronic kidney disease; N18.6 End stage renal disease; I50.9 Heart failure, unspecified; M19.90 Unspecified osteoarthritis, unspecified site; Z99.2 Dependence on renal dialysis; Z86.73 Personal history of transient ischemic attack (TIA), and cerebral infarction without residual deficits; Z87.440 Personal history of urinary (tract) infections; I25.10 Atherosclerotic heart disease of native coronary artery without angina pectoris; Z95.0 Presence of cardiac pacemaker; Z88.2 Allergy status to sulfonamides; Z88.5 Allergy status to narcotic agent
CPT/HCPCS: 36415; 51701; 80053; 81001; 85027; 87086; 93005; 96365; 96375; 99285; J0696; J3010